=== PATIENT | male | born 1980 | race Caucasian/White ===

== ENCOUNTER 2017-02-10 01:22 | Emergency (ER) | payer BC ==
[~2017-02-10] VITALS: Ht 175.3 cm; Wt 74.4 kg
[2017-02-10 01:25] VITALS: TEMP 36.6; Ht 175.3 cm; Wt 74.4 kg
[2017-02-10] MEDS ORDERED: AZITHROMYCIN 250 MG TAB PO STA (01:36)
[2017-02-10] MEDS ORDERED: AZITTAB PO (01:40)
--- NOTE | 2017-02-10 01:41 | EMERGENCY ROOM VISIT NOTE ---
History Report prepared by Steffi: Denise Samaniego Under the Supervision of: Dr. Philip Dee D.O. 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 The patient states that a few hours ago he had chest pressure due to the congestion that made it hurt to breathe causing him to come be evaluated in the ED tonight. The patient states that he has a productive cough ranging from a dark green to yellow in color. The patient states he also has nasal congestion. He denies any recent fevers. 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 Review of Systems See HPI for pertinent positives & negatives. A total of 10 systems reviewed and were otherwise negative. Past Medical & Surgical Medical Problems: (1) Asthma Family History No pertinent family history stated Social History Smoking Status: Never Smoker Alcohol Use: none Drug Use: none Occupation Status: employed Current/Historical Medications Scheduled Azithromycin (Zithromax Z-Gordon), 0 PO UD Allergies Coded Allergies: Sulfa Antibiotics (Verified Allergy, Unknown, RASH, 02/10/17) Physical Exam Vital Signs Date Time Temp Pulse Resp B/P Pulse Ox O2 Delivery O2 Flow Rate FiO2 02/10/17 01:38 98 Room Air 02/10/17 01:25 36.6 91 20 129/83 97 Room Air Physical Exam CONSTITUTIONAL/VITAL SIGNS: Reviewed / noted above. GENERAL: Non-toxic in appearance. INTEGUMENTARY: Warm, dry, and [place]. HEAD: Normocephalic. EYES: without scleral icterus or trauma. ENT/OROPHARYNX: clear and moist. LYMPHADENOPATHY/NECK: Is supple without lymphadenopathy or meningismus. RESPIRATORY: Lungs clear and equal. CARDIOVASCULAR: Regular rate and rhythm. GI/ABDOMEN: Soft and nontender. No organomegaly or pulsatile mass. No rebound or guarding. Normal bowel sounds. EXTREMITIES: Warm and well perfused. BACK: No CVA tenderness. NEUROLOGICAL: Intact without focal deficits. PSYCHIATRIC: normal affect. MUSCULOSKELETAL: Normally developed with good muscle tone. Medical Decision & Procedures Medications Administered Medications (Trade) Dose Ordered Sig/Vamsi Route Start Time Stop Time Status Last Admin Dose Admin Azithromycin (Zithromax Tab) 500 mg NOW STAT PO 02/10/17 01:36 02/10/17 01:38 DC 02/10/17 01:50 500 MG Albuterol (Ventolin Hfa Inhaler) 2 puffs NOW ONCE INH 02/10/17 01:45 02/10/17 01:46 DC 02/10/17 01:49 2 PUFFS ED Course 0132: Previous medical records were reviewed. The patient was evaluated in room B9. A complete history and physical examination was performed. 0136: Ordered Zithromax Tab 500 mg PO. 0145: Ordered Albuterol 2 puffs INH. 0148: On reevaluation, the patient is resting comfortably. I discussed the results and findings with the patient. He verbalized agreement of the treatment plan. The patient was discharged home. Medical Decision the differential was considered includes acute myocardial infarction, acute coronary syndrome, myocarditis, pericarditis, pericardial effusions /tamponade, esophageal perforation, pulmonary embolism, pneumonia, pneumothorax, cardiomyopathy, congestive heart, anemia , COPD/asthma exacerbation. This is a 36-year-old male who presents to the ED with a chief complaint of having some chest congestion and cough. He states his cough is productive for green/yellow mucus. He is not a smoker. He reports a remote history of asthma but is not taking anything for it. His vital signs are stable. He is afebrile. His physical exam reveals clear lung sounds. He does cough. He is in no distress. He appears to have some postnasal drip on ENT exam. The patient was started on Z-Gordon. He was also given albuterol inhaler. He is felt to be stable for discharge. Impression Primary Impression: Acute bronchitis Scribe Attestation The scribe's documentation has been prepared under my direction and personally reviewed by me in its entirety. I confirm that the note above accurately reflects all work, treatment, procedures, and medical decision making performed by me. Departure Information Dispostion Home / Self-Care Prescriptions Azithromycin (ZITHROMAX Z-GORDON) 250 Mg Tab 0 PO UD, #1 PKT 2 TABS DAY 1, THEN 1 TAB DAILY FOR 4 DAYS Prov: Mishock,Philip, D.O. 02/10/17 Referrals No Doctor, Assigned (PCP) Forms HOME CARE DOCUMENTATION FORM, IMPORTANT VISIT INFORMATION Patient Instructions Bronchitis Acute, My [facility] Additional Instructions Zithromax as prescribed. Albuterol: 2 puffs every 2-4 hours as needed for cough or wheezing. Return for any concerns.
[2017-02-10] MEDS ORDERED: ALBUTEROL HFA 8 GM INHALER INH ONE (01:45)
[2017-02-10 02:06] VITALS: BP 116/74; PULSE 78; O2SAT 96
== END 2017-02-10 02:07 | disposition home or self-care (01) ==
LOC: C.EDB 01:24
DX: J20.9 Acute bronchitis, unspecified (principal); J45.909 Unspecified asthma, uncomplicated; Z88.2 Allergy status to sulfonamides